=== PATIENT | female | born 1960 | race Caucasian/White ===

== ENCOUNTER 2017-06-05 07:01 | Emergency (ER) | payer OTHER ==
[~2017-06-05] VITALS: Ht 180.3 cm; Wt 113.4 kg
[2017-06-05] MEDS ORDERED: NAPR220 (07:39)
[2017-06-05] MEDS ORDERED: Crutch1 EACH MISC (08:27)
[2017-06-05] MEDS ORDERED: Percocet 5-3251 EACH PO (08:44)
== END 2017-06-05 09:30 | disposition home or self-care (01) ==
LOC: ER 07:01
DX: S82.832A Other fracture of upper and lower end of left fibula, initial encounter for closed fracture (principal); S93.02XA Subluxation of left ankle joint, initial encounter; Z79.899 Other long term (current) drug therapy; F17.210 Nicotine dependence, cigarettes, uncomplicated; W18.2XXA Fall in (into) shower or empty bathtub, initial encounter
CPT/HCPCS: 29515; 73564; 73610; 99283

== ENCOUNTER 2017-06-12 10:32 | Day surgery (SDC) | payer OTHER ==
[~2017-06-12] VITALS: Ht 154.9 cm; Wt 113.4 kg
[~2017-06-12 10:32] MED LIST: Crutch1 EACH MISC; NAPR220; Percocet 5-3251 EACH PO
== END 2017-06-12 15:29 | disposition home or self-care (01) ==
LOC: ORSCSDS 10:32
PROVIDERS: Podiatrist Foot & Ankle Surgery
PROC: 0QSK04Z Reposition Left Fibula with Internal Fixation Device, Open Approach (ICD-10-PCS; principal; 2017-06-12 12:30)
PROC: 0QSH04Z Reposition Left Tibia with Internal Fixation Device, Open Approach (ICD-10-PCS; principal; 2017-06-12 12:30)
DX: S82.852A Displaced trimalleolar fracture of left lower leg, initial encounter for closed fracture (principal); Z87.891 Personal history of nicotine dependence
CPT/HCPCS: C1713; J0171; J0690; J1100; J1885; J2250; J2405; J3010; J7120

== ENCOUNTER 2019-01-10 17:48 | Emergency (ER) | payer OTHER ==
[~2019-01-10] VITALS: Ht 180.3 cm; Wt 122.5 kg
[2019-01-10] MEDS ORDERED: TRAM50 PO (18:38)
[2019-01-10] MEDS ORDERED: Prednisone20 MG PO (18:38)
[2019-01-10] MEDS ORDERED: Robaxin-750750 MG PO (18:38)
== END 2019-01-10 18:59 | disposition home or self-care (01) ==
LOC: ER 17:48
DX: M54.16 Radiculopathy, lumbar region (principal); M53.3 Sacrococcygeal disorders, not elsewhere classified; M79.18 Myalgia, other site; F17.210 Nicotine dependence, cigarettes, uncomplicated
CPT/HCPCS: 99282; J1100